=== PATIENT | male | born 1960 | race African-American/Black ===

== ENCOUNTER 2019-09-22 18:47 | Inpatient (IN) | payer OTHER ==
[~2019-09-22] VITALS: Ht 172.7 cm; Wt 70.8 kg
[2019-09-22 20:48] LABS: HEMATOCRIT 29.9 % (39.0-50.0); HEMOGLOBIN 9.8 g/dl (14.0-18.0); IMMATURE GRANULOCYTES 1.2 % (0.0-5.0); MEAN CELL VOLUME 68.9 fL CALC (80.0-100.0); MEAN CORPUSCULAR HGB 22.6 pG CALC (26.0-32.0); MEAN CORPUSCULAR HGB CONC 32.8 g/L CALC (32.0-36.0); NEUT# 12.25 thou/uL (1.82-7.42); RED BLOOD COUNT 4.34 mill/uL (4.70-6.10); RED CELL DISTRI WIDTH 14.4 % (11.5-15.5)
[2019-09-22 21:14] LABS: ALBUMIN 2.7 g/dL (3.2-5.0); ALKALINE PHOSPHATASE 92 u/l (38-126); AMYLASE 83 u/l (30-110); BILIRUBIN, TOTAL 0.7 mg/dL (0.0-1.4); BUN 10 mg/dL (9-20); BUN/CREATININE RATIO 14 (12-20 (CALC)); CARBON DIOXIDE 26 mmol/l (22-30); CHLORIDE 97 mmol/l (95-108); CREATININE 0.7 mg/dL (0.7-1.3); GFR > 60 ML/MIN (>=60 (CALC)); GFR FOR AFR.AMER. > 60 ML/MIN (>=60 (CALC)); LIPASE 99 u/l (23-300); SGOT/AST 25 u/l (17-59); SODIUM 130 mmol/l (137-146); TOTAL PROTEIN 6.8 g/dL (6.3-8.2)
[2019-09-22 21:16] LABS: ANION GAP 11 (6-22 (CALC)); POTASSIUM 4.4 mmol/l (3.5-5.1)
[2019-09-22 21:19] LABS: INTERNATIONAL NORMALIZED RATIO 1.2 RATIO (0.7-1.3); PROTHROMBIN TIME 12.4 SECONDS (9.0-12.5)
[2019-09-22 22:54] LABS: URINE BILIRUBIN - DIPSTICK NEGATIVE (NEGATIVE); URINE BLOOD DIPSTICK NEGATIVE (NEGATIVE); URINE COLOR YELLOW; URINE GLUCOSE - DIPSTICK NEGATIVE (NEGATIVE); URINE KETONE NEGATIVE (NEGATIVE); URINE LEUK ESTERASE NEGATIVE (NEGATIVE); URINE NITRITE - DIPSTICK NEGATIVE (Negative); URINE PROTEIN - DIPSTICK NEGATIVE (NEG-TRACE)
[2019-09-23 02:20] VITALS: BP 124/77
[2019-09-23 04:52] VITALS: BP 112/73
[2019-09-23 05:37] LABS: HEMATOCRIT 29.7 % (39.0-50.0); HEMOGLOBIN 9.5 g/dl (14.0-18.0); IMMATURE GRANULOCYTES 1.2 % (0.0-5.0); MEAN CELL VOLUME 68.6 fL CALC (80.0-100.0); MEAN CORPUSCULAR HGB 21.9 pG CALC (26.0-32.0); NEUT# 12.77 thou/uL (1.82-7.42); RED BLOOD COUNT 4.33 mill/uL (4.70-6.10); RED CELL DISTRI WIDTH 14.4 % (11.5-15.5)
[2019-09-23] MEDS ORDERED: TAMSULOSIN0.4 MG PO (10:45)
[2019-09-23 11:00] VITALS: BP 129/70
[2019-09-23 16:26] VITALS: BP 134/74
[2019-09-23 19:03] VITALS: BP 136/77
[2019-09-23 23:45] VITALS: BP 128/74
[2019-09-24 03:42] VITALS: BP 130/85
[2019-09-24 05:51] LABS: HEMATOCRIT 32.9 % (39.0-50.0); HEMOGLOBIN 10.3 g/dl (14.0-18.0); IMMATURE GRANULOCYTES 1.1 % (0.0-5.0); MEAN CELL VOLUME 70.1 fL CALC (80.0-100.0); MEAN CORPUSCULAR HGB CONC 31.3 g/L CALC (32.0-36.0); NEUT# 12.83 thou/uL (1.82-7.42); RED BLOOD COUNT 4.69 mill/uL (4.70-6.10); RED CELL DISTRI WIDTH 14.8 % (11.5-15.5)
[2019-09-24 06:43] LABS: ALBUMIN 2.6 g/dL (3.2-5.0); ALKALINE PHOSPHATASE 90 u/l (38-126); ANION GAP 11 (6-22 (CALC)); BUN 13 mg/dL (9-20); BUN/CREATININE RATIO 21 (12-20 (CALC)); CARBON DIOXIDE 26 mmol/l (22-30); CHLORIDE 104 mmol/l (95-108); CREATININE 0.6 mg/dL (0.7-1.3); GFR > 60 ML/MIN (>=60 (CALC)); GFR FOR AFR.AMER. > 60 ML/MIN (>=60 (CALC)); MAGNESIUM 2.2 mg/dL (1.6-2.3); POTASSIUM 5.1 mmol/l (3.5-5.1); SGOT/AST 30 u/l (17-59); SODIUM 136 mmol/l (137-146); TOTAL PROTEIN 6.8 g/dL (6.3-8.2)
[2019-09-24 06:54] LABS: BILIRUBIN, TOTAL 0.4 mg/dL (0.0-1.4); C-REACTIVE PROTEIN 26.4 mg/dL (0-0.9)
[2019-09-24 07:38] VITALS: BP 138/81
[2019-09-24 12:00] VITALS: BP 147/77
[2019-09-24 18:35] VITALS: BP 145/88
[2019-09-24 23:56] VITALS: BP 143/75
[2019-09-25 03:22] VITALS: BP 142/79
[2019-09-25 05:34] LABS: HEMATOCRIT 30.9 % (39.0-50.0); HEMOGLOBIN 9.7 g/dl (14.0-18.0); MEAN CELL VOLUME 69.1 fL CALC (80.0-100.0); MEAN CORPUSCULAR HGB 21.7 pG CALC (26.0-32.0); MEAN CORPUSCULAR HGB CONC 31.4 g/L CALC (32.0-36.0); RED BLOOD COUNT 4.47 mill/uL (4.70-6.10)
[2019-09-25 08:52] VITALS: BP 132/79
[2019-09-25 12:00] VITALS: BP 141/78
[2019-09-25 16:30] VITALS: BP 156/84
[2019-09-25 22:33] VITALS: BP 150/79
[2019-09-26 00:14] VITALS: BP 154/86
[2019-09-26 04:16] VITALS: BP 157/83
[2019-09-26 08:07] VITALS: BP 157/80
[2019-09-26 10:50] VITALS: BP 161/75
[2019-09-26 19:17] VITALS: BP 138/81
[2019-09-27] VITALS (7 sets, daily range): BP systolic 123–160; BP diastolic 73–81
[2019-09-28 01:25] VITALS: BP 138/80
[2019-09-28 05:26] LABS: HEMATOCRIT 32.5 % (39.0-50.0); HEMOGLOBIN 10.1 g/dl (14.0-18.0); MEAN CELL VOLUME 70.7 fL CALC (80.0-100.0); MEAN CORPUSCULAR HGB CONC 31.1 g/L CALC (32.0-36.0); RED BLOOD COUNT 4.6 mill/uL (4.70-6.10); RED CELL DISTRI WIDTH 15.2 % (11.5-15.5)
[2019-09-28 05:50] VITALS: BP 140/89
[2019-09-28 06:01] LABS: ANION GAP 13 (6-22 (CALC)); BUN 17 mg/dL (9-20); BUN/CREATININE RATIO 26 (12-20 (CALC)); CARBON DIOXIDE 25 mmol/l (22-30); CHLORIDE 103 mmol/l (95-108); CREATININE 0.7 mg/dL (0.7-1.3); GFR > 60 ML/MIN (>=60 (CALC)); GFR FOR AFR.AMER. > 60 ML/MIN (>=60 (CALC)); POTASSIUM 5.1 mmol/l (3.5-5.1); SODIUM 136 mmol/l (137-146)
[2019-09-28 11:07] VITALS: BP 131/80
[2019-09-28] MEDS ORDERED: ZITHROMAX500 MG PO (13:13)
[2019-09-28] MEDS ORDERED: TESSALON PER100 MG PO (13:13)
[2019-09-28] MEDS ORDERED: VANTIN200 M1 PO (13:13)
[2019-09-28] MEDS ORDERED: PROTONIX40 M2 PO (13:13)
[2019-09-28] MEDS ORDERED: IPRATROPIU0.5 MG/3 M IN (13:13)
[2019-09-28] MEDS ORDERED: PREDNISONE10 MG PO (13:13)
[2019-09-28] MEDS ORDERED: LORTAB5 PO (13:13)
== END 2019-09-28 15:56 | DRG 193 ==
LOC: ED 18:47 → ED-I 23:09 → ED 23:35 → MS2 23:36
PROVIDERS: Emergency Medicine; Internal Medicine; Internal Medicine Infectious Disease; Nurse Practitioner Family; ADMIT Internal Medicine; ATTEND Internal Medicine
DX: J18.9 Pneumonia, unspecified organism (principal); J96.01 Acute respiratory failure with hypoxia; R63.4 Abnormal weight loss; D64.9 Anemia, unspecified; N40.0 Benign prostatic hyperplasia without lower urinary tract symptoms; F17.200 Nicotine dependence, unspecified, uncomplicated; D47.3 Essential (hemorrhagic) thrombocythemia; D72.829 Elevated white blood cell count, unspecified; T38.0X5A Adverse effect of glucocorticoids and synthetic analogues, initial encounter; Z68.24 Body mass index [BMI] 24.0-24.9, adult; Z86.15 Personal history of latent tuberculosis infection
CPT/HCPCS: J1650; Q3014; Q9967

== ENCOUNTER 2019-09-28 | Emergency (ER) | payer OTHER ==
[~2019-09-28] MED LIST: TAMSULOSIN0.4 MG PO
[2019-09-28] MEDS ORDERED: PREDNISONE10 MG PO (13:13)
[2019-09-28] MEDS ORDERED: PROTONIX40 M2 PO (13:13)
[2019-09-28] MEDS ORDERED: LORTAB5 PO (13:13)
[2019-09-28] MEDS ORDERED: ZITHROMAX500 MG PO (13:13)
[2019-09-28] MEDS ORDERED: IPRATROPIU0.5 MG/3 M IN (13:13)
[2019-09-28] MEDS ORDERED: TESSALON PER100 MG PO (13:13)
[2019-09-28] MEDS ORDERED: VANTIN200 M1 PO (13:13)
[2019-09-28 20:25] LABS: HEMATOCRIT 33.4 % (39.0-50.0); HEMOGLOBIN 10.2 g/dl (14.0-18.0); MEAN CELL VOLUME 71.2 fL CALC (80.0-100.0); MEAN CORPUSCULAR HGB 21.7 pG CALC (26.0-32.0); MEAN CORPUSCULAR HGB CONC 30.5 g/L CALC (32.0-36.0); NEUT# 15.21 thou/uL (1.82-7.42); RED BLOOD COUNT 4.69 mill/uL (4.70-6.10); RED CELL DISTRI WIDTH 16.2 % (11.5-15.5)
[2019-09-28 20:31] LABS: URINE BILIRUBIN - DIPSTICK NEGATIVE (NEGATIVE); URINE BLOOD DIPSTICK MODERATE (NEGATIVE); URINE COLOR YELLOW; URINE GLUCOSE - DIPSTICK NEGATIVE (NEGATIVE); URINE KETONE NEGATIVE (NEGATIVE); URINE PROTEIN - DIPSTICK 30 mg/dL (NEG-TRACE); URINE SPECIFIC GRAVITY >=1.030; URINE UROBILINOGEN - DIPSTICK 0.2 E.U./dL (0.2)
[2019-09-28 20:33] LABS: URINE LEUK ESTERASE MODERATE (NEGATIVE); URINE NITRITE - DIPSTICK POSITIVE (Negative)
[2019-09-28 20:34] LABS: URINE BACTERIA MODERATE hpf; URINE EPITHELIAL CELLS MANY EPI/hpf (0-FEW); URINE MUCUS MANY hpf (NONE-FEW); URINE WBC 20-50 WBC/hpf (0-5)
[2019-09-28 20:35] LABS: BARBITURATES NEGATIVE (NEGATIVE); COCAINE NEGATIVE (NEGATIVE); METHADONE NEGATIVE (NEGATIVE); OXCYCODONE NEGATIVE (NEGATIVE); TETRAHYDROCANNABIONOL NEGATIVE (NEGATIVE); TRICYLIC ANTIDEPRESSANTS NEGATIVE (NEGATIVE)
[2019-09-28 20:53] LABS: ALBUMIN 3.1 g/dL (3.2-5.0); ALKALINE PHOSPHATASE 83 u/l (38-126); ANION GAP 11 (6-22 (CALC)); BILIRUBIN, TOTAL 0.5 mg/dL (0.0-1.4); BUN 23 mg/dL (9-20); BUN/CREATININE RATIO 32 (12-20 (CALC)); CARBON DIOXIDE 28 mmol/l (22-30); CHLORIDE 102 mmol/l (95-108); CREATININE 0.7 mg/dL (0.7-1.3); GFR > 60 ML/MIN (>=60 (CALC)); GFR FOR AFR.AMER. > 60 ML/MIN (>=60 (CALC)); SGOT/AST 26 u/l (17-59); SODIUM 136 mmol/l (137-146); TOTAL PROTEIN 7.5 g/dL (6.3-8.2)
[2019-09-28 20:54] LABS: POTASSIUM 5.2 mmol/l (3.5-5.1)
[2019-09-28 20:57] LABS: D-DIMER 4.1 mg/L (0.19-0.60); INTERNATIONAL NORMALIZED RATIO 1.1 RATIO (0.7-1.3); PROTHROMBIN TIME 11.5 SECONDS (9.0-12.5)
[2019-09-28 21:05] LABS: MYOGLOBIN 25 ng/mL (0 - 121)
== END 2019-09-29 00:50 | DRG 195 ==
PROVIDERS: Family Medicine
DX: J18.9 Pneumonia, unspecified organism (principal)
CPT/HCPCS: Q9967